=== PATIENT | male | born 1950 | race Caucasian/White ===

== ENCOUNTER 2019-03-18 21:40 | Emergency (ER) | payer OTHER ==
[~2019-03-18] VITALS: Ht 177.8 cm; Wt 74.8 kg
--- OUTSIDE RECORDS SUMMARY | 2019-03-18 21:42 | XMS REPORT | Clinical Summary ---
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 Active omeprazole (PriLOSEC) 40 TAKE ONE (1) 3 03/18/201 MG capsule CAPSULE(S) BY 8 MOUTH TWICE A DAY. Active ranitidine (ZANTAC) 150 TAKE ONE (1) 5 04/17/201 MG tablet TABLET(S) BY 8 MOUTH DAILY AT BEDTIME. Active levocetirizine (XYZAL) 5 Take 5 mg by 0 MG tablet mouth every evening. Active aspirin 325 MG tablet Take 325 mg 0 by mouth daily. Active fluticasone propionate into each 0 (FLONASE NASL) nostril. Active Problems Not on file Family History Medical History Relation Name Comments Ulcers Father Lupus Mother Relation Name Status Comments Father Mother Social History Date Tobacco Use Types Packs/Day Years Used Never Smoker Smokeless Tobacco: Never Used Sex Assigned at Date Recorded Not on file Industry Job Start Date Occupation Not on file Not on file Not on file Travel End Travel History Travel Start No recent travel history available. Last Filed Vital Signs Not on file Plan of Treatment Health Maintenance Due Date Last Done Comments COLONOSCOPY SCREENING 2000 SHINGLES VACCINES (#1) 2000 65+ PNEUMOCOCCAL VACCINE 12/18/2015 (1 of 2 - PCV13) INFLUENZA VACCINE 03/08/2019 Results Not on fileafter 03/17/2018 Insurance Type Payer Benefit Subscriber ID Effective Phone Address Plan / Dates Group PPO HUMANA HUMANA xxxxxxxxx [id number] CHOICE resent C[employer] PPO Advance Directives Patient has advance care planning documents on file. For more information, ricarda perry contact: Carlos [address] [place] [address]
[2019-03-18] MEDS ORDERED: PROMETHAZINE HCL (IM) 25 MG/ML VIAL ONE (22:14)
[2019-03-18] MEDS ORDERED: SODIUM CHLORIDE 0.9% 1000ML 1,000 ML ONE (22:14)
[2019-03-18] MEDS ORDERED: SODIUM CHLORIDE 0.9% 1000ML 1,000 ML IV SCH (22:15)
[2019-03-18] MEDS ORDERED: PROMETHAZINE 25MG/ NS 50ML (IV) IV ONE (22:15)
[2019-03-18] MEDS ORDERED: LORAZEPAM INJ 2 MG/ML VIAL ONE (23:12)
[2019-03-18] MEDS ORDERED: LORAZEPAM INJ 2 MG/ML VIAL IV ONE (23:15)
--- NOTE | 2019-03-18 23:19 | Diagnostic Imaging Report ---
Exam: Head CT without contrast History: Dizziness Comparison studies: None Technique: Axial images were obtained from the skull base to the vertex. Coronal and sagittal images reconstructed from the axial data. Dose modulation, iterative reconstruction, and/or weight based adjustment of the mA/kV was utilized to reduce the radiation dose to as low as reasonably achievable. Radiation dose: Total DLP: 969 mGy*cm. Estimated effective dose: DLP x 0.015 Intravenous contrast: None Findings: Scalp: No abnormalities. Bones: No fractures, blastic or lytic lesions. Brain sulci: Mildly prominent. Ventricles: Mild compensatory dilatation. No hydrocephalus. Extra-axial spaces: No masses, no fluid collection. Parenchyma: No mass, acute hemorrhage or acute cortical vascular insults. A few scattered hypodensities in the supratentorial white matter are nonspecific but most compatible with chronic small vessel ischemic changes. Sellar/suprasellar region: No abnormalities. Craniocervical junction: Patent foramen magnum. No Chiari one malformation. Incidental findings: Atherosclerotic calcifications in the carotid siphons. IMPRESSION: No acute abnormalities. Chronic findings: 1. Mild generalized parenchymal volume loss. 2. Mild microvascular ischemic changes Signed by: Dr. Ciro Ortiz M.D. on 03/18/2019 11:16 PM
[2019-03-18 23:57] VITALS: BP 137/65
== END 2019-03-19 00:06 | disposition home or self-care (01) ==
LOC: FSED 21:40
DX: H81.11 Benign paroxysmal vertigo, right ear (principal); R11.2 Nausea with vomiting, unspecified; I10 Essential (primary) hypertension; R26.2 Difficulty in walking, not elsewhere classified
CPT/HCPCS: 70450; 80053; 84484; 85025; 93005; 96374; 99283; J2060; J2550; J7030

== ENCOUNTER → 2021-05-01 | Day surgery (SDC) | payer OTHER ==
[~2021-05-01] MED LIST: ATIVAN1 MG PO; AUGMENTIN 500-1 EACH PO; OMEPRAZOLE40 MG PO; ONDANSETRON ODT8 MG PO
[2021-05-01 14:20] VITALS: BP 118/67
== END | disposition home or self-care (01) ==
LOC: OR 06:51
PROVIDERS: ATTEND Internal Medicine Gastroenterology
DX: K59.00 Constipation, unspecified (principal); K63.5 Polyp of colon; K29.50 Unspecified chronic gastritis without bleeding; K21.9 Gastro-esophageal reflux disease without esophagitis; K20.90 Esophagitis, unspecified without bleeding; K44.9 Diaphragmatic hernia without obstruction or gangrene; K57.30 Diverticulosis of large intestine without perforation or abscess without bleeding; K64.8 Other hemorrhoids; R03.0 Elevated blood-pressure reading, without diagnosis of hypertension; Z20.822 Contact with and (suspected) exposure to COVID-19
CPT/HCPCS: 43239; 45380; C9113; U0002; 45378

== ENCOUNTER 2022-04-25 17:48 | Emergency (ER) | payer MEDICARE, BC, OTHER ==
[~2022-04-25] VITALS: Ht 177.8 cm; Wt 81.3 kg
[2022-04-25] MEDS ORDERED: ARICEPT5 MG PO (18:18)
[2022-04-25] MEDS ORDERED: ACETAMINOPHEN500 MG PO (18:34)
[2022-04-25] MEDS ORDERED: IBUPROFEN200 MG PO (18:34)
== END 2022-04-25 19:20 | disposition home or self-care (01) ==
LOC: FSED 17:52
DX: S20.213A Contusion of bilateral front wall of thorax, initial encounter (principal); V43.52XA Car driver injured in collision with other type car in traffic accident, initial encounter; Y92.488 Other paved roadways as the place of occurrence of the external cause; K21.9 Gastro-esophageal reflux disease without esophagitis
CPT/HCPCS: 71250; 99283